=== PATIENT | female | born 1970 | race Caucasian/White ===

== ENCOUNTER → 2016-04-15 | Outpatient (CLI) | payer BC ==
--- NOTE | 2016-04-19 09:07 | MM ---
Reason for exam: screening (asymptomatic). Last mammogram was performed 2 years and 2 months ago. History: Took hormonal contraceptives for 4 years beginning at age 20. Physical Findings: A clinical breast exam by your physician is recommended on an annual basis and results should be correlated with mammographic findings. MG Screening Mammo w CAD Bilateral CC and MLO view(s) were taken. Prior study comparison: January 31, 2014, bilateral MG screening mammo w CAD. November 02, 2012, bilateral digital screening mammo w/CAD. January 14, 2011, bilateral digital screening mammo w/CAD. There are scattered fibroglandular densities. There is chronic nodularity in the left breast. No significant changes when compared with prior studies. ASSESSMENT: Negative, BI-RAD 1 RECOMMENDATION: Routine screening mammogram of both breasts in 1 year.
== END | disposition home or self-care (01) ==
LOC: RADMAMWWP 08:38
PROVIDERS: ATTEND Family Medicine
DX: Z12.31 Encounter for screening mammogram for malignant neoplasm of breast (principal)

== ENCOUNTER → 2017-11-24 | Outpatient (CLI) | payer BC ==
--- NOTE | 2017-11-24 11:14 | XR ---
EXAMINATION TYPE: XR cervical spine comp DATE OF EXAM: 11/24/2017 COMPARISON: NONE HISTORY: 47-year-old female cervicalgia, left-sided neck pain for one year after fall TECHNIQUE: 5 views FINDINGS: There is facet arthropathy throughout particularly on the left. There is interval mild bony spondylotic neural foraminal narrowing on the left. There may be moderate bony spondylotic neural foraminal narrowing on the right at C6-C7. Preserved alignment of the cervical spine though with reversal of the normal cervical lordosis. Moderate distention plate degenerative changes present at C6-C7 and C7-T1 with disc interspace narrow ing, endplate spondylosis. No predental space widening or prevertebral soft tissue swelling. Normal odontoid view. IMPRESSION: 1. Left greater than right facet arthropathy throughout. Additional moderate disc/endplate degenerati ve change at C6-C7 and C7-T1. 2. Variable mild bony neuroforaminal narrowing on the left. There may been moderate neuroforaminal na rrowing on the right at C6-C7. 3. Straightening of the of the normal cervical lordosis could be positional or due to muscle spasm. N o malalignment.
== END | disposition home or self-care (01) ==
LOC: RADXRYALE 08:51
PROVIDERS: ATTEND Family Medicine
DX: M99.71 Connective tissue and disc stenosis of intervertebral foramina of cervical region (principal); M47.813 Spondylosis without myelopathy or radiculopathy, cervicothoracic region; M46.92 Unspecified inflammatory spondylopathy, cervical region
CPT/HCPCS: 72050

== ENCOUNTER → 2017-12-22 | Outpatient (CLI) | payer BC ==
--- NOTE | 2017-12-23 13:58 | MM ---
Reason for exam: screening (asymptomatic). Last mammogram was performed 1 year and 8 months ago. History: Took hormonal contraceptives for 4 years beginning at age 20. Physical Findings: A clinical breast exam by your physician is recommended on an annual basis and results should be correlated with mammographic findings. MG 3D Screening Mammo W/Cad Bilateral CC and MLO view(s) were taken. Prior study comparison: April 15, 2016, bilateral MG screening mammo w CAD. January 31, 2014, bilateral MG screening mammo w CAD. There are scattered fibroglandular densities. There is a stable left lower inner quadrant mass. No suspicious abnormality. No significant changes when compared with prior studies. ASSESSMENT: Benign, BI-RAD 2 RECOMMENDATION: Routine screening mammogram of both breasts in 1 year.
== END | disposition home or self-care (01) ==
LOC: RADMAMWWP 09:39
PROVIDERS: ATTEND Family Medicine
DX: Z12.31 Encounter for screening mammogram for malignant neoplasm of breast (principal)
CPT/HCPCS: 77063; 77067

== ENCOUNTER → 2020-02-08 | Outpatient (CLI) | payer BC ==
--- NOTE | 2020-02-11 13:29 | MM ---
Reason for exam: screening (asymptomatic). Last mammogram was performed 2 years and 2 months ago. History: Took hormonal contraceptives for 4 years beginning at age 20. Taking estrogen. Taking progesterone. Physical Findings: A clinical breast exam by your physician is recommended on an annual basis and results should be correlated with mammographic findings. MG 3D Screening Mammo W/Cad Bilateral CC and MLO view(s) were taken. Prior study comparison: December 22, 2017, bilateral MG 3d screening mammo w/cad. April 15, 2016, bilateral MG screening mammo w CAD. Focal asymmetry left lower inner quadrant middle position. No significant changes when compared with prior studies. ASSESSMENT: Benign, BI-RAD 2 RECOMMENDATION: Routine screening mammogram of both breasts in 1 year.
== END | disposition home or self-care (01) ==
LOC: RADMAMWWP 14:37
PROVIDERS: ATTEND Obstetrics & Gynecology
DX: Z12.31 Encounter for screening mammogram for malignant neoplasm of breast (principal)
CPT/HCPCS: 77063; 77067

== ENCOUNTER → 2021-06-09 | Outpatient (CLI) | payer BC ==
--- NOTE | 2021-06-10 08:33 | MM ---
Reason for exam: screening (asymptomatic). Last mammogram was performed 1 year and 4 months ago. History: Patient is postmenopausal. Took hormonal contraceptives for 4 years beginning at age 20. Taking estrogen. Taking progesterone. Physical Findings: A clinical breast exam by your physician is recommended on an annual basis and results should be correlated with mammographic findings. MG 3D Screening Mammo W/Cad Bilateral CC and MLO view(s) were taken. Prior study comparison: February 08, 2020, bilateral MG 3d screening mammo w/cad. December 22, 2017, bilateral MG 3d screening mammo w/cad. There are scattered fibroglandular densities. There is no discrete abnormality. Left skin lesion redemonstrated. ASSESSMENT: Benign, BI-RAD 2 RECOMMENDATION: Routine screening mammogram of both breasts in 1 year.
== END | disposition home or self-care (01) ==
LOC: RADMAMWWP 07:14
PROVIDERS: ATTEND Obstetrics & Gynecology
DX: Z12.31 Encounter for screening mammogram for malignant neoplasm of breast (principal); Z78.0 Asymptomatic menopausal state
CPT/HCPCS: 77063; 77067

== ENCOUNTER → 2023-07-01 | Outpatient (CLI) | payer BC ==
--- NOTE | 2023-07-01 12:01 | XR ---
EXAMINATION TYPE: XR lumbosacral spine min 4V DATE OF EXAM: 07/01/2023 COMPARISON: None HISTORY: Sacroiliitis TECHNIQUE: 5 view lumbar spine FINDINGS: There are 5 lumbar-type vertebral bodies. Pedicles are intact. Disc heights are preserved. Vertebral body heights are preserved. Spondylolysis of L5 on the right appears to be present. Facets are intact. Some mild scoliosis is present lower lumbar spine. IMPRESSION: 1. Scoliosis with suspected spondylolysis of L5 on the right
--- NOTE | 2023-07-01 12:07 | XR ---
EXAMINATION TYPE: XR sacroiliac joint comp BILAT DATE OF EXAM: 07/01/2023 COMPARISON: None HISTORY: Sacroiliac pain TECHNIQUE: Sacroiliac joints are examined in 3 projections. FINDINGS: Sacroiliac joints are patent. No acute fractures or dislocations. Bowel gas overlies the sa rajwinder. IMPRESSION: 1. No acute osseous abnormality bilateral sacroiliac joints.
== END | disposition home or self-care (01) ==
LOC: RADXRYALE 10:55
PROVIDERS: ATTEND Family Medicine
DX: M46.1 Sacroiliitis, not elsewhere classified (principal)
CPT/HCPCS: 72110; 72202